=== PATIENT | female | born 1985 | race African-American/Black ===

== ENCOUNTER 2018-06-16 18:30 | Emergency (ER) | payer OTHER ==
[~2018-06-16] VITALS: Ht 175.3 cm; Wt 92.1 kg
[2018-06-16 18:44] VITALS: BP 152/103
--- NOTE | 2018-06-16 19:03 | NUR ---
PT AMBULATE TO BED
[2018-06-16] MEDS ORDERED: KETOROLAC 30 MG/ML VIAL IM ONE (19:15)
--- NOTE | 2018-06-16 19:15 | NUR ---
32/F PRESENTS TO ED, C/O L ARM "HEAVINESS AND PULLING" DISCOMFORT, X2 WEEKS. PT REPORTS THAT IT STARTED ON HER POSTERIOR NECK, SOON RADIATED DOWN L ARM. ALSO REPORTS MILD CHEST DISCOMFORT. PT REPORTS THAT SHE HAS BEEN SLEEPING ON THE FLOOR BUT HAS BEEN SLEEPING IN A BED SINCE LAST WEEK BUT DISCOMFORT HAS NOT GONE AWAY. PT DENIES SOB, N/V. PT AOX4, GCS 15, RR EVEN AND UNLABORED. LUNG SOUNDS CLEAR BL. DENIES MED HX, REPORTS FAMILY CARDIAC HX
--- NOTE | 2018-06-16 20:20 | NUR ---
Patient discharged with v/s stable. Written and verbal after care instructions given and explained. Patient alert, oriented and verbalized understanding of instructions. Ambulatory with steady gait. All questions addressed prior to discharge. ID band removed. Patient advised to follow up with PMD. Rx of ACETAMINOPHEN AND NAPROSYN given. Patient educated on indication of medication including possible reaction and side effects. Opportunity to ask questions provided and answered.
== END 2018-06-16 20:21 | disposition home or self-care (01) ==
LOC: MED 18:30
DX: S46.912A Strain of unspecified muscle, fascia and tendon at shoulder and upper arm level, left arm, initial encounter (principal); M43.6 Torticollis; I10 Essential (primary) hypertension; Z88.0 Allergy status to penicillin; X58.XXXA Exposure to other specified factors, initial encounter; Y93.89 Activity, other specified; Y92.89 Other specified places as the place of occurrence of the external cause; Y99.8 Other external cause status
CPT/HCPCS: 71046; 93005; 96372; 99283; J1885

== ENCOUNTER 2019-06-01 12:07 | Emergency (ER) | payer SELFPAY ==
[~2019-06-01] VITALS: Ht 175.3 cm; Wt 108.9 kg
[2019-06-01 12:15] VITALS: BP 129/81
--- NOTE | 2019-06-01 12:19 | NUR ---
PT TO BED 12 WITH STEADY GAIT
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
--- NOTE | 2019-06-01 14:21 | NUR ---
US AT BEDSIDE
[2019-06-01 15:46] VITALS: BP 118/75
--- NOTE | 2019-06-01 15:46 | NUR ---
Patient discharged with v/s stable. Written and verbal after care instructions given and explained. Patient alert, oriented and verbalized understanding of instructions. Ambulatory with steady gait. All questions addressed prior to discharge. ID band removed. Patient advised to follow up with PMD. Rx of Acetaminophen and Ibuprofen given. Patient educated on indication of medication including possible reaction and side effects. Opportunity to ask questions provided and answered.
== END 2019-06-01 15:46 | disposition home or self-care (01) ==
LOC: MED 12:07
DX: S39.012A Strain of muscle, fascia and tendon of lower back, initial encounter (principal); R10.9 Unspecified abdominal pain; I10 Essential (primary) hypertension; Z88.0 Allergy status to penicillin; V49.40XA Driver injured in collision with unspecified motor vehicles in traffic accident, initial encounter; Y93.89 Activity, other specified; Y92.89 Other specified places as the place of occurrence of the external cause; Y99.8 Other external cause status
CPT/HCPCS: 72100; 76700; 81025; 99284; Q0092

== ENCOUNTER 2020-08-06 19:28 | Emergency (ER) | payer OTHER ==
[~2020-08-06] VITALS: Ht 175.3 cm; Wt 95.7 kg
[2020-08-06 19:35] VITALS: BP 146/82
--- NOTE | 2020-08-06 19:41 | NUR ---
PT AMBULATORY TO BED #2
[2020-08-06 19:50] VITALS: BP 146/82
--- NOTE | 2020-08-06 20:15 | NUR ---
SEEN AND EXAMINED BY LEXI.
[2020-08-06] MEDS ORDERED: MEDR10TA PO (20:31)
[2020-08-06] MEDS ORDERED: IBUP-2213 PO (20:31)
--- NOTE | 2020-08-06 20:36 | NUR ---
Patient discharged with v/s stable. Written and verbal after care instructions given and explained. Patient alert, oriented and verbalized understanding of instructions. Ambulatory with steady gait. All questions addressed prior to discharge. ID band removed. Patient advised to follow up with PMD. Rx of PROVERA AND MOTRIN given. Patient educated on indication of medication including possible reaction and side effects. Opportunity to ask questions provided and answered.
== END 2020-08-06 20:36 | disposition home or self-care (01) ==
LOC: MED 19:28
DX: N93.9 Abnormal uterine and vaginal bleeding, unspecified (principal); F12.10 Cannabis abuse, uncomplicated; Z88.0 Allergy status to penicillin
CPT/HCPCS: 81002; 81025; 99283